=== PATIENT | male | born 1980 | race Caucasian/White ===

== ENCOUNTER 2025-10-14 03:29 | Emergency (ER) | payer MEDICAID ==
[~2025-10-14] VITALS: Ht 172.7 cm; Wt 112.2 kg
--- NOTE | 2025-10-14 04:15 | Physician Documentation ---
History of Present Illness ~ Chief Complaint: Eye Pain Stated Complaint: SWOLLEN EYE Time Seen by MD: 03:54 Primary Medical Doctor: N/A HPI Patient presents to the emergency room for evaluation of stye over his right eye that developed over this past week. He has been on the road traveling and has not been able to attend to it. He has not applied any warm compresses or any t opical antibiotics. Medication Reconciliation Allergies: Uncoded Allergies: SULFA (Allergy, Intermediate, hives, 10/14/25) Review of Systems ROS All review of systems negative except as per HPI and Physical Exam Vital Signs: Temperature: 97.9, Source: Oral, Heart Rate: 67, Respiratory Rate: 14, BP: 123/83, Pulse Oximetry: 94, Weight: 112.200 Physical Exam General: Patient is awake, alert, oriented x4 in no acute distress Head: Normocephalic and atraumatic. Eyes: Conjunctival normal. EOMI. PERRL. Noted stye on upper lid of right lateral eye. Eye movement without limitations. ENT: Mucous membranes moist. Neck: Supple, trachea is midline. Chest: Clear to auscultation bilaterally without rales, rhonchi, or wheezes. There is no accessory muscle use or retractions. Cardiac: RRR without murmurs, gallops, or rubs. Procedures Procedures Stye aspiration: . Status post informed verbal consent patient's eyelid was cleaned with alcohol swab. Number 21 needle utilized to perform small pinprick over patient has stye that has beginning to come to a head. No purulence was expressed. Patient tolerated procedure well without complication. Total time of procedure 3 minutes Progress Results/Orders Results/Orders Vital Signs 10/14/25 03:38 Temp 97.9 Pulse 67 Resp 14 B/P (MAP) 123/83 Pulse Ox 94 Medical Decision Making Additional information obtaine: N/A Findings Patient presented to the emergency room with a stye as per HPI. It appears that patient has stairs coming to a head. Small pinprick on I attempted however no purulence was expressed. Warm compresses recommended. No systemic antibiotics Ear Diff. Dx: Considerations: Include: Abrasion, Cerumen impaction, Foreign b diogenes, Otitis externa, Barotrauma, Otitis media, Perforation, Referred pain- dental, Referred pain-pharyngitis, Referred pain-sinusitis, Referred pain-TMJ syn., Tympanic Membrane Injury, Other Eye Diff. Dx: Considerations: Include: Chalazoin, Conjuctivits-allergic, Conjuctivitis-bacterial, Conjuctivits-chlamydial, Conjuctivitis-viral, Corneal abrasion, Corneal laceration, Corneal ulceration, Foreign body-conjuctiva, Foreign body-corneal, Foreign body-intraocular, Foreign body-lid, Glaucoma, Globe rupture, Hordeolum, Iritis, Orbital cellulitis, Periobital cellulitis, Retinal artery occulsion, Retinal vein occlusion, Rust ring, Subconjunctival hem, Ultraviolet keratitis, Uveitis, Vitreous hemorrhage, Other Nose Diff. Dx: Considerations: Include: Abrasion, Anterior nasal bleed, Avulsion, Contusion, Coagulopathy, Fracture-nasal bone, Fracture-septum, Hypertension, Laceration, Other, Posterior nasal bleed, Retained foreign body, Septal hematoma Tooth Diff. Dx: Considerations: Include: Alveolar fracture, Aveolar osteitis, ANUG, Facial cellulitis, Periapical abscess, Periodontal abscess, Post- extraction bleeding, Pulpitis, Trigeminal neuralgia, Tooth-avulsion, Tooth- eruption, Tooth-fracture, Tooth-subluxation, Other Throat Diff Dx: Considerations: Include: AIDS, Epiglottitis, Esophageal candidiasis, Hand foot mouth disease, Herpangina, Herpetic stomatitis, Herpes simplex, Infection mononucleosis, Immunodeficiency, Douglas's angina, Per itonsillar abscess, Peritonsillar cellulitis, Pharyngitis-diphtheria, Pharyngitis-strepococcal, Pharyngitis-viral, Thrush, URI, Other Departure Disposition: 01 HOME / SELF CARE / HOMELESS Impression: Primary Impression: Hordeolum externum (stye) Condition: Stable Discharge Instructions: Sty Additional Instructions: Warm compresses. If continues to be a problem follow up with electrician shop Referrals: NO PRIMARY CARE PROVIDER (PCP) Prescriptions Ofloxacin Opth.* (Ofloxacin Opth.*) 5 Ml Bottle 1-2 DRP EACHEYE Q4H, #1 EACH EVERY 4 HOURS WHILE AWAKE. Prov: CLARK EPPERSON MD 10/14/25 Signature Scribe Signature: No scribe Attestation: The note accurately reflects work and decisions made by me.Clark Epperson MD 10/14/25 04:27 CLARK EPPERSON MD Oct 14, 2025 04:15
[2025-10-14] MEDS ORDERED: OFLO5DRO EACHEYE (04:27)
[2025-10-14] MEDS ORDERED: ALBU18HF2 IH (04:40)
[2025-10-14 04:41] VITALS: BP 122/88; PULSE 65; RESP 16; TEMP 97.9; O2SAT 98
== END 2025-10-14 04:44 | disposition home or self-care (01) ==
LOC: ER 03:31
DX: H00.011 Hordeolum externum right upper eyelid (principal)
CPT/HCPCS: 10160; 99284